=== PATIENT | female | born 1955 | race Two or more races ===

== ENCOUNTER 2016-07-30 10:44 | Emergency (ER) | payer MEDICARE, MEDICAID ==
[2016-07-30] MEDS ORDERED: DIPHENHYDRAMINE HCL IV 50 MG/ML VIAL IVP ONE (11:01)
[2016-07-30] MEDS ORDERED: METOCLOPRAMIDE HCL 10 MG/2 ML VIAL IVP ONE (11:01)
[2016-07-30] MEDS ORDERED: KETOROLAC 30 MG/ML VIAL IVP ONE (11:01)
--- NOTE | 2016-07-30 11:07 | Emergency Department Record ---
History of Present Illness - General Chief Complaint: Headache Migraine Stated Complaint: FAIRCHILD & BODYACHES Time Seen by Provider: 07/30/16 10:45 Source: Patient Mode of Arrival: Ambulatory Limitations: No limitations - History of Present Illness Initial Comments: 60 yo female presents to ED from [facility] office for evaluation of headache and body aches that began last night. Patient does report similar headache symptoms previously, denies nausea/vomiting symptoms. Patient reports that her symptoms came on gradually, reports congestion, sinus pain, and sinus pressure as well. Patient denies neck stiffness and denies anticoagulation use. MD Complaint: Headache Onset/Timin -: Hour(s) Onset Description: Gradual Location: Frontal, Occipital Severity: Moderate Severity scale (1-10): 10 Quality: Aching Consistency: Constant Improves With: Nothing Worsens With: None Other Symptoms: Chest pain, Cough Treatments Prior to Arrival: None - Related Data Home Medications Medication Instructions Recorded Confirmed Last Taken Levothyroxine Sodium [Synthroid] 150 mcg PO DAILY 09/20/14 07/30/16 07/28/16 Allergies Allergy/AdvReac Type Severity Reaction Status Date / Time aspirin Allergy Unknown PT UNSURE Unverified 07/30/16 10:19 OF REACTION Penicillins Allergy Unknown PT UNSURE Unverified 07/30/16 10:19 OF REACTION Travel Screening - Travel/Exposure Within Last 30 Days Have you traveled within the last 30 days?: No - Travel/Exposure Within Last Year Have you traveled outside the [place] in the last year?: No - Additonal Travel Details Have you been exposed to anyone with a communicable illness?: No - Travel Symptoms Symptom Screening: None Review of Systems Constitutional: Denies: Chills, Malaise, Night sweats Eyes: Denies: Eye discharge, Eye pain ENT: Reports: Congestion. Denies: Ear pain, Epistaxis Respiratory: Reports: Cough. Denies: Dyspnea Cardiovascular: Denies: Chest pain, Dyspnea on exertion Endocrine: Denies: Fatigue, Heat or cold intolerance Gastrointestinal: Denies: Abdominal pain, Nausea, Vomiting Genitourinary: Denies: Dysuria, Frequency Musculoskeletal: Denies: Arthralgia, Back pain, Gout, Joint swelling Skin: Denies: Bruising, Change in color Neurological: Reports: Headache. Denies: Abnormal gait, Confusion, Seizure Psychiatric: Denies: Anxiety Hematological/Lymphatic: Denies: Anemia, Blood Clots Past Medical History - SOCIAL HISTORY Smoking Status: Former smoker Alcohol Use: None Drug Use: Occassional Drug Use Detail:: Marijuana - RESPIRATORY Hx Respiratory Disorders: No - CARDIOVASCULAR Hx Cardio Disorders: Yes Hx Abnormal EKG: Yes - NEURO Hx Neuro Disorders: No - GI Hx GI Disorders: No - Hx Genitourinary Disorders: No - ENDOCRINE Hx Endocrine Disorders: Yes Hx Thyroid Disease: Yes (removed) - MUSCULOSKELETAL Hx Musculoskeletal Disorders: No - PSYCH Hx Psych Problems: Yes Hx Anxiety: Yes Hx Depression: Yes - HEMATOLOGY/ONCOLOGY Hx Hematology/Oncology Disorders: No Family Medical History Any Significant Family History?: No Hx Cancer: Father Hx Diabetes: Mother Hx Liver Disease: Mother Physical Exam - General General Appearance: Alert, Oriented x3, Cooperative, Moderate distress (patient is tearful on examination, anxious appearing) Limitations: No limitations - Head Head exam: Atraumatic, Normocephalic, Normal inspection Head exam detail: negative: Abrasion, Contusion, Eddy's sign, General tenderness, Hematoma, Laceration - Eye Eye exam: Normal appearance. negative: Conjunctival injection, Periorbital swelling, Periorbital tenderness, Scleral icterus - ENT Ear exam: negative: Auricular hematoma, Auricular trauma Nasal Exam: negative: Active bleeding, Discharge, Dried blood, Foreign body Mouth exam: negative: Drooling, Laceration, Muffled voice, Tongue elevation - Neck Neck exam: Normal inspection. negative: Meningismus, Tenderness - Respiratory Respiratory exam: Normal lung sounds bilaterally. negative: Rales, Respiratory distress, Rhonchi, Stridor - Cardiovascular Cardiovascular Exam: Regular rate, Normal rhythm, Normal heart sounds - GI/Abdominal GI/Abdominal exam: Soft. negative: Rebound, Rigid, Tenderness - Rectal Rectal exam: Deferred - exam: Deferred - Extremities Extremities exam: Normal inspection. negative: Calf tenderness, Pedal edema, Tenderness - Back Back exam: Denies: CVA tenderness (R), CVA tenderness (L) - Neurological Neurological exam: Alert, Normal gait, Oriented X3 - Psychiatric Psychiatric exam: Normal affect, Normal mood - Skin Skin exam: Normal color. negative: Abrasion Type of lesion: negative: abrasion Course Vital Signs 07/30/16 10:46 Temperature 98.0 F Pulse Rate 92 H Respiratory 18 Rate Blood Pressure 154/85 Pulse Ox 97 - Reevaluation(s) Reevaluation #1: 07/30/16 11:06 Will administer migraine therapy, obtain laboratory studies, and CT imaging of the brain and reassess. Patient agrees with plan as discussed. Reevaluation #2: 07/30/16 11:51 Labs reviewed, CRP < 0.5, WBC normal, AST/ALT/Alk phos are minimally elevated and c/w hepatitis C history. CT Brain: NO acute process. Reevaluation #3: 07/30/16 12:11 Patient reassessed and reports that her headache symptoms are down to "5/10 from a 100/10". Given the patient's rapid improvement with non-narcotic therapy , lack of fever, and no meningeal signs, patient is in agreement that LP would not be of benefit. Patient was instructed to return to ED for any worsening of her symptoms. Medical Decision Making - Lab Data Result diagrams: 07/30/16 11:09 07/30/16 11:09 Disposition Disposition: Discharge Clinical Impression: Headache Qualifiers: Headache type: unspecified Headache chronicity pattern: acute headache Intractability: not intractable Qualified Code(s): R51 - Headache Disposition: Home, Self-Care Condition: (2) Stable Instructions: Acute Headache (ED) Additional Instructions: Return to ED if your symptoms worsen or if you have any concerns. Follow-up with your family doctor in 1-3 days as directed. Forms: Patient Portal Access Time of Disposition: 12:14
[2016-07-30] MEDS ORDERED: 0.9 % SODIUM CHLORIDE 1000ML 1,000 ML IV SCH (11:15)
[2016-07-30 11:20] LABS: BASO % 0.1 % (0-6); EOS % 0.5 % (0-6); GRAN % 73.3 % (47-80); HEMATOCRIT 43.5 % (35.0-47.0); HEMOGLOBIN 15.2 gm/dl (11.6-16.0); LYMPH % 19.2 % (16-45); MEAN CELL VOLUME 85.5 fl (81-97); MEAN CORPUSCULAR HEMOGLOBIN 29.9 pg (27-33); MEAN CORPUSCULAR HGB CONC 34.9 g/dl (32-36); MEAN PLATELET VOLUME 10.7 fl (7.4-10.4); MONO % 6.9 % (0-9); PLATELET COUNT 154 K/uL (130-400); RED BLOOD COUNT 5.09 M/uL (3.80-5.40); RED CELL DISTRIBUTION WIDTH 13.6 % (11.5-14.5)
[2016-07-30 11:33] LABS: ALB/GLOB RATIO 1.2 (1.1-1.8); ALBUMIN 4.6 gm/dL (3.5-5.0); ALKALINE PHOSPHATASE 164 U/L (38-126); ALT/SGPT 58 U/L (9-52); ANION GAP 5.7 (7-16); AST/SGOT 58 U/L (14-36); BILIRUBIN,TOTAL 0.81 mg/dL (0.2-1.3); BLOOD UREA NITROGEN 10 mg/dL (7-17); C-REACTIVE PROTEIN < 0.5 mg/dL (0.0-0.9); CARBON DIOXIDE 24.3 mmol/L (22-30); CREATININE 0.7 mg/dL (0.52-1.04); EST GLOMERULAR FILTRATION RATE > 60 ml/min; GLUCOSE,RANDOM 114 mg/dL (70-110); TOTAL PROTEIN 8.6 gm/dL (6.3-8.2)
--- NOTE | 2016-08-01 09:16 | CT SCAN REPORT ---
EXAM: CT OF THE BRAIN HISTORY: HEADACHES. TECHNIQUE: CT of the brain without contrast was obtained. Comparison: Prior CT of the brain from 09/20/14. FINDINGS: The globes are intact. Mucosal thickening of the ethmoid air cells. No displaced or depressed skull fracture. No intra or extraaxial hemorrhage. CT is limited for evaluation of acute infarct. No CT evidence for large or territorial acute infarct. No mass or midline shift. IMPRESSION: NEGATIVE FOR ACUTE INTRACRANIAL ABNORMALITY. JOB NUMBER: [id number] [facility]
== END 2016-07-30 13:06 | disposition home or self-care (01) ==
LOC: ER 10:44
DX: R51 Headache (principal); E05.00 Thyrotoxicosis with diffuse goiter without thyrotoxic crisis or storm; R05 Cough; R68.83 Chills (without fever); Z00.00 Encounter for general adult medical examination without abnormal findings; Z13.1 Encounter for screening for diabetes mellitus; Z13.220 Encounter for screening for lipoid disorders; Z86.19 Personal history of other infectious and parasitic diseases; Z11.59 Encounter for screening for other viral diseases
CPT/HCPCS: 70450; 80053; 85025; 86140; 96374; 96375; 99283; 99284; J1200; J1885; J2765

== ENCOUNTER 2017-11-13 07:02 | Emergency (ER) | payer MEDICARE, MEDICAID ==
[2017-11-13] MEDS ORDERED: ONDANSETRON HCL IV 4 MG/2 ML VIAL IV ONE (07:20)
[2017-11-13] MEDS ORDERED: 0.9 % SODIUM CHLORIDE 1,000 ML BAG IV ONE (07:20)
--- NOTE | 2017-11-13 07:28 | Emergency Department Record ---
History of Present Illness - General Chief Complaint: Headache Migraine Stated Complaint: HEADACHE Time Seen by Provider: 11/13/17 07:09 Source: Patient Mode of Arrival: Ambulatory Limitations: No limitations - History of Present Illness Initial Comments: The patient is here due to a 3-4 day hx of not feeling well. She started Harvoni 5 days ago and then 4 days ago developed a mild frontal FAIRCHILD. Since the FAIRCHILD has gradually worsened and now has become much more severe. She has had nausea and some vomiting and also did feel SOB last night with a cough. The patient also feels like her gums are swollen. There has been no fever, chills, CP, AP, or visual changes. The patient has had similar FAIRCHILD's in the past and has been to the ER for them also. MD Complaint: Headache Onset/Timin -: Days(s) Onset Description: Gradual Location: Facial, Frontal Severity scale (1-10): 10 Quality: Aching Consistency: Constant Improves With: Nothing Associated Symptoms: Other Treatments Prior to Arrival: Ibuprofen - Related Data Home Medications Medication Instructions Recorded Confirmed Last Taken Ledipasvir/Sofosbuvir [Harvoni 1 each PO DAILY 11/13/17 11/13/17 11/12/17 90-400 mg Tablet] Previous Rx's Medication Instructions Recorded Ondansetron [Zofran Odt] 4 mg SL .Q4-6H PRN #12 tab.rapdis 11/13/17 Allergies Allergy/AdvReac Type Severity Reaction Status Date / Time aspirin Allergy Unknown PT UNSURE Unverified 03/27/17 10:10 OF REACTION Penicillins Allergy Unknown PT UNSURE Unverified 03/27/17 10:10 OF REACTION Travel Screening - Travel/Exposure Within Last 30 Days Have you traveled within the last 30 days?: No - Travel/Exposure Within Last Year Have you traveled outside the [place] in the last year?: No - Additonal Travel Details Have you been exposed to anyone with a communicable illness?: No - Travel Symptoms Symptom Screening: None Review of Systems Constitutional: Reports: Malaise. Denies: Chills, Fever Eyes: Denies: Eye discharge ENT: Denies: Congestion Respiratory: Denies: Cough, Dyspnea Cardiovascular: Denies: Arrhythmia, Chest pain Endocrine: Reports: Fatigue Gastrointestinal: Reports: Nausea Genitourinary: Denies: Dysuria Musculoskeletal: Denies: Arthralgia Past Medical History - SOCIAL HISTORY Smoking Status: Former smoker Alcohol Use: None Drug Use: Rare Drug Use Detail:: Marijuana - RESPIRATORY Hx Respiratory Disorders: Yes Hx COPD: Yes - CARDIOVASCULAR Hx Cardio Disorders: No Hx Abnormal EKG: Yes - NEURO Hx Neuro Disorders: Yes Hx Headaches: Yes - GI Hx GI Disorders: Yes Hx Hepatitis/Jaundice: Yes (Hep C) - Hx Genitourinary Disorders: No - ENDOCRINE Hx Endocrine Disorders: Yes Hx Thyroid Disease: Yes (removed) - MUSCULOSKELETAL Hx Musculoskeletal Disorders: Yes Hx Osteoporosis: Yes - PSYCH Hx Psych Problems: Yes Hx Anxiety: Yes Hx Depression: Yes - HEMATOLOGY/ONCOLOGY Hx Hematology/Oncology Disorders: No Family Medical History Any Significant Family History?: No Hx Cancer: Father Hx Diabetes: Mother Hx Liver Disease: Mother Physical Exam - General General Appearance: Alert, Oriented x3, Cooperative, No acute distress - Head Head exam: Atraumatic, Normocephalic, Normal inspection - Eye Eye exam: Normal appearance, PERRL, EOMI - ENT Throat exam: Normal inspection. negative: Tonsillar erythema, Tonsillar exudate - Neck Neck exam: Normal inspection, Full ROM. negative: Meningismus (The neck is very supple.), Tenderness - Respiratory Respiratory exam: Normal lung sounds bilaterally. negative: Respiratory distress - Cardiovascular Cardiovascular Exam: Regular rate, Normal rhythm, Normal heart sounds - GI/Abdominal GI/Abdominal exam: Soft, Normal bowel sounds. negative: Tenderness - Extremities Extremities exam: Normal inspection, Full ROM, Normal capillary refill. negative: Tenderness - Neurological Neurological exam: Alert, Normal gait, Oriented X3. negative: Abnormal gait, Motor sensory deficit Course Vital Signs 11/13/17 07:08 Temperature 98.4 F Pulse Rate [ 92 H Pulse Ox Probe] Respiratory 24 Rate Blood Pressure 144/95 [Left Arm] Pulse Ox 97 - Reevaluation(s) Reevaluation #1: The patient is doing a lot better at this time and her FAIRCHILD has resolved. I did discuss what I feel is the cause of her symptoms and feel very strongly that it is the Harvoni. The first 4 common side effects of Harvoni are weakness, headache, nausea and cough and the patient is here due to all 4 of those issues. She is to stop the medicine and call her specialist today. 11/13/17 08:24 Medical Decision Making - Data Complexity MDM Data: Labs Ordered and/or Reviewed, X-Ray Ordered and/or Reviewed - Lab Data Result diagrams: 11/13/17 07:35 11/13/17 07:35 - Radiology Data Radiology results: Report reviewed (CXR: Neg) Disposition Disposition: Discharge Clinical Impression: Medication side effects Disposition: Home, Self-Care Condition: (2) Stable Instructions: Acute Headache (ED) Additional Instructions: Please stop the Harvoni and use Zofran for nausea. Please call your Specialist today for further instructions regarding the medicines. Return to the ER for any worsening symptoms. Prescriptions: Ondansetron [Zofran Odt] 4 mg SL .Q4-6H PRN #12 tab.rapdis PRN Reason: Nausea Forms: Patient Portal Access Time of Disposition: 08:27 Quality - Quality Measures Quality Measures: N/A - Blood Pressure Screening View Details: Yes Does Patient Have Any of the Following: No Blood Pressure Classification: Pre-Hypertensive BP Reading Systolic Measurement: 117 Diastolic Measurement: 80 Screening for High Blood Pressure: < Pre-Hypertensive BP, F/U Documented > [ G8950] Pre-Hypertensive Follow-up Interventions: Referral to alternative/primary care provider.
[2017-11-13] MEDS ORDERED: KETOROLAC 30 MG/ML VIAL IVP ONE (07:30)
[2017-11-13] MEDS ORDERED: DIPHENHYDRAMINE HCL 50 MG/ML VIAL IVP ONE (07:30)
[2017-11-13] MEDS ORDERED: METOCLOPRAMIDE HCL 10 MG/2 ML VIAL IVP ONE (07:30)
[2017-11-13 07:41] LABS: BASO % 0.2 % (0-6); EOS % 1.2 % (0-6); GRAN % 59.2 % (47-80); HEMATOCRIT 40.1 % (35.0-47.0); HEMOGLOBIN 13.7 gm/dl (11.6-16.0); LYMPH % 32.2 % (16-45); MEAN CELL VOLUME 86.2 fl (81-97); MEAN CORPUSCULAR HEMOGLOBIN 29.5 pg (27-33); MEAN CORPUSCULAR HGB CONC 34.2 g/dl (32-36); MEAN PLATELET VOLUME 10.4 fl (7.4-10.4); MONO % 7.2 % (0-9); PLATELET COUNT 169 K/uL (130-400); RED BLOOD COUNT 4.65 M/uL (3.80-5.40); RED CELL DISTRIBUTION WIDTH 12.8 % (11.5-14.5); WHITE BLOOD COUNT W/O DIFF 6.5 K/uL (4.2-12.2)
[2017-11-13 07:53] LABS: BLOOD UREA NITROGEN 9 mg/dL (8-23); CREATININE 0.6 mg/dL (0.5-0.9); EST GLOMERULAR FILTRATION RATE > 60 mL/min; TOTAL PROTEIN 7.4 g/dL (6.6-8.7)
[2017-11-13 07:55] LABS: GLUCOSE,RANDOM 114 mg/dL (74-109)
[2017-11-13 07:58] LABS: ALKALINE PHOSPHATASE 107 U/L (35-104); ALT/SGPT < 5 U/L (<33); AST/SGOT 21 U/L (10.0-35.0)
[2017-11-13 07:59] LABS: BILIRUBIN,DIRECT < 0.2 mg/dL (0-0.3)
--- NOTE | 2017-11-15 14:58 | RADIOLOGY REPORT ---
EXAM: CHEST, TWO VIEWS HISTORY: COUGH. TECHNIQUE: Two views of the chest were obtained. Comparison: Two view chest radiographic examination dated 12/11/15. FINDINGS: The heart is not enlarged and the pulmonary vasculature is nondilated. The lungs and pleural spaces are grossly clear with the exception of minimal biapical pleural and parenchymal scarring. There are mild degenerative end plate changes scattered within the visualized spine. IMPRESSION: NO RADIOGRAPHIC EVIDENCE OF ACUTE CARDIOPULMONARY DISEASE WITHOUT SIGNIFICANT CHANGE SINCE 04/12/05. JOB NUMBER: [id number] [facility]
== END 2017-11-13 08:38 | disposition home or self-care (01) ==
LOC: ER 07:02
DX: G44.40 Drug-induced headache, not elsewhere classified, not intractable (principal); R11.2 Nausea with vomiting, unspecified; R06.02 Shortness of breath; R53.1 Weakness; R05 Cough; T50.995A Adverse effect of other drugs, medicaments and biological substances, initial encounter; Z87.891 Personal history of nicotine dependence
CPT/HCPCS: 99284 ×2; 96374; 96375; 96361; 85025; 80076; 80048; 71046; J1885; J2405; J1200; J2765; J7030

== ENCOUNTER 2018-02-24 17:41 | Inpatient (IN) | payer MEDICARE, MEDICAID ==
--- NOTE | 2018-02-24 18:19 | Emergency Department Record ---
History of Present Illness - General Chief Complaint: Dizziness Stated Complaint: FELL,DIZZY, SHAKY Time Seen by Provider: 02/24/18 18:06 Source: Patient Mode of Arrival: Ambulatory - History of Present Illness Initial Comments: The patient states that she had two episodes of syncope since last evening twice. FIRST syncope she was lightheaded, layed down for a while, got up to go to bathroom and next thing she knew she woke up on bathroom floor. She states she it her left head left shoulder and left hip/thigh and they are painful. SECOND time she had slept all night in bed, went home around 1100am today, ate toast and egg, and when she got up to to to bathroom she woke up again on the floor. She denies other mproblems such as chest pain, Yessy, abdominal pain nausea vomiting diarrhea, abdominal pain. MD Complaint: Other (syncope) Onset/Timin -: Days(s) Timing: Sudden onset, Waxing/waning Description: Near-syncope History of Same: Yes (related to thyroid issues 2009) History of Trauma: No Severity: Moderate - Marianne Coma Scale Eye Response: (4) Open spontaneously Motor Response: (6) Obeys commands Verbal Response: (5) Oriented [place] Total: 15 - Related Data Allergies Allergy/AdvReac Type Severity Reaction Status Date / Time aspirin Allergy Unknown PT UNSURE Verified 02/24/18 17:56 OF REACTION Penicillins Allergy Unknown PT UNSURE Verified 02/24/18 17:56 OF REACTION Travel Screening - Travel/Exposure Within Last 30 Days Have you traveled within the last 30 days?: No - Travel/Exposure Within Last Year Have you traveled outside the [place] in the last year?: No - Additonal Travel Details Have you been exposed to anyone with a communicable illness?: No - Travel Symptoms Symptom Screening: None Review of Systems Reviewed: No additional complaints except as noted below Constitutional: Reports: As per HPI. Denies: Chills, Fever, Malaise, Night sweats, Weakness, Weight change Eyes: Reports: As per HPI. Denies: Eye discharge, Eye pain, Photophobia, Vision change ENT: Reports: As per HPI. Denies: Congestion, Dental pain, Ear pain, Epistaxis , Hearing loss, Throat pain Respiratory: Reports: As per HPI. Denies: Cough, Dyspnea, Hemoptysis, Stridor, Wheezes Cardiovascular: Reports: As per HPI. Denies: Arrhythmia, Chest pain, Dyspnea on exertion, Edema, Murmurs, Orthopnea, Palpitations, Paroxysmal nocturnal dyspnea, Rheumatic Fever, Syncope Endocrine: Reports: As per HPI. Denies: Fatigue, Heat or cold intolerance, Polydipsia, Polyuria Gastrointestinal: Reports: As per HPI. Denies: Abdominal pain, Constipation, Diarrhea, Hematemesis, Hematochezia, Melena, Nausea, Vomiting Genitourinary: Reports: As per HPI. Denies: Abnormal menses, Discharge, Dyspareunia, Dysuria, Frequency, Hematuria, Incontinence, Retention, Urgency Musculoskeletal: Reports: As per HPI. Denies: Arthralgia, Back pain, Gout, Joint swelling, Myalgia, Neck pain Skin: Reports: As per HPI. Denies: Bruising, Change in color, Change in hair/ nails, Lesions, Pruritus, Rash Neurological: Reports: As per HPI. Denies: Abnormal gait, Confusion, Headache, Numbness, Paresthesias, Seizure, Tingling, Tremors, Vertigo, Weakness Psychiatric: Reports: As per HPI. Denies: Anxiety, Auditory hallucinations, Depression, Homicidal thoughts, Suicidal thoughts, Visual hallucinations Hematological/Lymphatic: Reports: As per HPI. Denies: Anemia, Blood Clots, Easy bleeding, Easy bruising, Swollen glands Past Medical History - SOCIAL HISTORY Smoking Status: Former smoker Alcohol Use: None Drug Use: None, Rare Drug Use Detail:: Marijuana - RESPIRATORY Hx Respiratory Disorders: Yes Hx COPD: Yes - CARDIOVASCULAR Hx Cardio Disorders: No Hx Abnormal EKG: Yes Comment:: low HR - NEURO Hx Neuro Disorders: Yes Hx Headaches: Yes - GI Hx GI Disorders: Yes Hx Hepatitis/Jaundice: Yes (Hep C) - Hx Genitourinary Disorders: No - ENDOCRINE Hx Endocrine Disorders: Yes Hx Thyroid Disease: Yes (removed) - MUSCULOSKELETAL Hx Musculoskeletal Disorders: Yes Hx Osteoporosis: Yes - PSYCH Hx Psych Problems: Yes Hx Anxiety: Yes Hx Depression: Yes - HEMATOLOGY/ONCOLOGY Hx Hematology/Oncology Disorders: No Family Medical History Any Significant Family History?: Yes Hx Cancer: Father Hx Diabetes: Mother Hx Liver Disease: Mother Physical Exam - General General Appearance: Alert, Oriented x3, Cooperative, Mild distress - Head Head exam: Normal inspection Head exam detail: Contusion (diffusely over left side of head) - Eye Eye exam: Normal appearance, PERRL, EOMI. negative: Conjunctival injection, Nystagmus Pupils: Normal accommodation - ENT ENT exam: Normal exam, Mucous membranes moist, Normal external ear exam, Normal orophraynx, TM's normal bilaterally Ear exam: Normal external inspection. negative: External canal tenderness Nasal Exam: Normal inspection. negative: Discharge, Sinus tenderness Mouth exam: Normal external inspection, Tongue normal Teeth exam: Normal inspection. negative: Dental caries Throat exam: Normal inspection. negative: Tonsillar erythema, Tonsillar exudate - Neck Neck exam: Normal inspection, Full ROM. negative: Lymphadenopathy, Meningismus , Tenderness - Respiratory Respiratory exam: Normal lung sounds bilaterally. negative: Respiratory distress - Cardiovascular Cardiovascular Exam: Regular rate, Normal rhythm, Normal heart sounds - GI/Abdominal GI/Abdominal exam: Soft, Normal bowel sounds. negative: Tenderness - Rectal Rectal exam: Deferred - exam: Deferred - Extremities Extremities exam: Normal inspection, Full ROM, Normal capillary refill. negative: Calf tenderness, Pedal edema, Tenderness - Back Back exam: Reports: Normal inspection, Full ROM. Denies: CVA tenderness (R), CVA tenderness (L), Muscle spasm, Rash noted, Tenderness - Neurological Neurological exam: Alert, CN II-XII intact, Normal gait, Oriented X3, Reflexes normal. negative: Abnormal gait, Altered, Motor sensory deficit - Psychiatric Psychiatric exam: Normal affect, Normal mood - Skin Skin exam: Dry, Intact, Normal color, Warm Course Vital Signs 02/24/18 17:47 Temperature 97.9 F Pulse Rate 86 Respiratory 18 Rate Blood Pressure 121/78 Pulse Ox 98 - Reevaluation(s) Reevaluation #1: 02/24/18 21:25 Patis's test results discussed with her, and she agrees to admission here for syncope workup. Medical Decision Making - Management Options MDM Management: Additional Work-up Planned (e.g. ADM/Transfer/OP Study) ( Admission fo syncope) - Data Complexity MDM Data: Labs Ordered and/or Reviewed, X-Ray Ordered and/or Reviewed (All scans and xrays negative per radiologist.), EKG Ordered and/or Reviewed - Lab Data Result diagrams: 02/24/18 18:40 - EKG Data -: EKG Interpreted by [facility] EKG: No Acute Changes Disposition Forms: Patient Portal Access Quality - Quality Measures Quality Measures: N/A - Blood Pressure Screening Does Patient Have Any of the Following: No Blood Pressure Classification: Pre-Hypertensive BP Reading Systolic Measurement: 121 Diastolic Measurement: 78 Screening for High Blood Pressure: < Normal BP, F/U Not Required > [G8783]
[2018-02-24 18:43] LABS: HEMATOCRIT 39.6 % (35.0-47.0); HEMOGLOBIN 13.4 gm/dl (11.6-16.0); MEAN CELL VOLUME 84.8 fl (81-97); MEAN CORPUSCULAR HEMOGLOBIN 28.7 pg (27-33); MEAN CORPUSCULAR HGB CONC 33.8 g/dl (32-36); PLATELET COUNT 198 K/uL (130-400); RED BLOOD COUNT 4.67 M/uL (3.80-5.40); RED CELL DISTRIBUTION WIDTH 12.8 % (11.5-14.5); WHITE BLOOD COUNT W/O DIFF 6.6 K/uL (4.2-12.2)
[2018-02-24 18:52] LABS: PLATELET ESTIMATE NORMAL (NORMAL)
[2018-02-24 18:57] LABS: TOTAL PROTEIN 7.3 g/dL (6.6-8.7)
[2018-02-24 19:02] LABS: ALBUMIN 3.8 g/dL (4.0-5.0); ALKALINE PHOSPHATASE 103 U/L (35-104); ALT/SGPT 18 U/L (<33); AST/SGOT 23 U/L (10.0-35.0)
[2018-02-24 19:03] LABS: BILIRUBIN,DIRECT < 0.2 mg/dL (0-0.3)
[2018-02-24 20:57] LABS: URINE APPEARANCE CLEAR; URINE BILIRUBIN NEGATIVE (NEGATIVE); URINE BLOOD NEGATIVE (NEGATIVE); URINE COLOR YELLOW; URINE GLUCOSE (UA) NEGATIVE (NEGATIVE); URINE KETONE NEGATIVE (NEGATIVE); URINE LEUKOCYTE ESTERASE NEGATIVE (NEGATIVE); URINE NITRITE NEGATIVE (NEGATIVE); URINE PROTEIN NEGATIVE (NEGATIVE)
[2018-02-24 21:02] LABS: AMPHETAMINE SCREEN URINE NOT DETECTED; BARBITURATE SCREEN URINE NOT DETECTED; BENZODIAZEPINE SCREEN URINE NOT DETECTED; COCAINE SCREEN URINE NOT DETECTED; METHADONE SCREEN URINE NOT DETECTED; OPIATE SCREEN URINE NOT DETECTED; PHENCYCLIDINE SCREEN URINE NOT DETECTED; THC SCREEN URINE NOT DETECTED; TRICYCLIC ANTIDEPRESSANT SCRN NOT DETECTED
[2018-02-24 21:03] LABS: METHAMPHETAMINE SCREEN NOT DETECTED; OXYCODONE SCREEN URINE NOT DETECTED; PROPOXYPHENE SCREEN URINE NOT DETECTED
[2018-02-24] MEDS ORDERED: KETOROLAC 30 MG/ML VIAL IVP ONE (21:20)
[2018-02-24] MEDS ORDERED: AL HYDROX/MAG HYDROX 30ML UD PO PRN (21:45)
[2018-02-24] MEDS ORDERED: TEMAZEPAM 15 MG CAPSULE PO PRN (21:45)
[2018-02-24] MEDS: ACETAMINOPHEN 325 MG TAB PO PRN (22:27)
[2018-02-24] MEDS ORDERED: PNEUM 23-VAL ADULT IM ONE (23:21)
[2018-02-25 05:45] LABS: HEMATOCRIT 37.9 % (35.0-47.0); HEMOGLOBIN 12.9 gm/dl (11.6-16.0); MEAN CELL VOLUME 84.2 fl (81-97); MEAN CORPUSCULAR HEMOGLOBIN 28.7 pg (27-33); MEAN PLATELET VOLUME 10.3 fl (7.4-10.4); PLATELET COUNT 181 K/uL (130-400); RED CELL DISTRIBUTION WIDTH 12.5 % (11.5-14.5); WHITE BLOOD COUNT W/O DIFF 5.1 K/uL (4.2-12.2)
[2018-02-25 05:59] LABS: ALB/GLOB RATIO 1.1 (1.1-1.8); ALBUMIN 3.4 g/dL (4.0-5.0); ALKALINE PHOSPHATASE 91 U/L (35-104); ALT/SGPT 19 U/L (<33); AST/SGOT 20 U/L (10.0-35.0); BLOOD UREA NITROGEN 13 mg/dL (8-23); CREATININE 0.6 mg/dL (0.5-0.9); EST GLOMERULAR FILTRATION RATE > 60 mL/min; GLUCOSE,RANDOM 109 mg/dL (74-109); TOTAL PROTEIN 6.6 g/dL (6.6-8.7)
[2018-02-25 06:06] LABS: PLATELET ESTIMATE NORMAL (NORMAL)
[2018-02-25] MEDS ORDERED: LEVOTHYROXINE SODIUM 150 MCG TABLET PO SCH (07:00)
--- NOTE | 2018-02-25 07:35 | CT SCAN REPORT ---
EXAM: CT SCAN OF THE BRAIN WITHOUT CONTRAST HISTORY: SYNCOPE AND FALLS. LEFT SIDED HEAD AND NECK PAIN. TECHNIQUE: Standard CT imaging of the brain was performed in the axial plane without contrast. Comparison: 07/30/16. Encounter: Initial. FINDINGS: The ventricles and subarachnoid spaces are normal. There is no mass , mass effect, intracranial hemorrhage, visible acute infarct, or abnormal extraaxial fluid. The skull is intact. The orbits, sinuses, and mastoids are normal. IMPRESSION: NO ACUTE INTRACRANIAL ABNORMALITY OR SKULL FRACTURE. JOB NUMBER: [id number] [facility]TDD
--- NOTE | 2018-02-25 07:39 | CT SCAN REPORT ---
EXAM: CT SCAN OF THE CERVICAL SPINE WITHOUT CONTRAST HISTORY: SYNCOPE AND FALL. LEFT SIDED NECK PAIN. TECHNIQUE: Standard CT imaging of the cervical spine was performed in the axial plane without contrast. Additional coronal and sagittal reformatted images were also performed. Comparison: None. Encounter: Initial. FINDINGS: The patient is immobilized in a cervical collar. There is normal cervical alignment. The craniocervical and cervicothoracic junctions are normal. There is no acute fracture, subluxation, or prevertebral soft tissue swelling. There is very minor end plate degenerative change at the C5-C6 level. There is no central canal stenosis or significant neural foraminal narrowing. The neck soft tissues and lung apices appear normal. IMPRESSION: NO ACUTE CERVICAL SPINE PATHOLOGY. JOB NUMBER: [id number] [facility]TDD
--- NOTE | 2018-02-25 07:41 | RADIOLOGY REPORT ---
EXAM: LEFT SHOULDER HISTORY: LEFT SHOULDER PAIN STATUS POST FALL. TECHNIQUE: Three views of the left shoulder were obtained. Comparison: None. FINDINGS: The bones and joints are intact. There is no acute fracture or dislocation. There are minor arthritic changes of the acromioclavicular joint. IMPRESSION: NO ACUTE LEFT SHOULDER PATHOLOGY. JOB NUMBER: [id number] MTDD
--- NOTE | 2018-02-25 07:43 | RADIOLOGY REPORT ---
EXAM: LEFT FEMUR HISTORY: LEFT FEMUR PAIN STATUS POST FALL. TECHNIQUE: AP and lateral views of the left femur were obtained. Comparison: None. Encounter: Initial. FINDINGS: The bones and joints are normal in appearance. There is no acute fracture or dislocation. No focal soft tissue abnormality is identified. IMPRESSION: NEGATIVE LEFT FEMUR. JOB NUMBER: [id number] MTDD
--- NOTE | 2018-02-25 07:45 | RADIOLOGY REPORT ---
EXAM: LEFT RIBS WITH PA CHEST HISTORY: LEFT RIB PAIN STATUS POST FALL. TECHNIQUE: An AP upright view of the chest and four views of the left ribs were obtained. Comparison: Previous chest x-ray dated 11/13/17. FINDINGS: The heart, mediastinum, and pulmonary vasculature are normal. The lungs are clear. There is no pneumothorax or effusion. The left ribs are normal in appearance. There is no fracture or destructive process. IMPRESSION: NO ACUTE CHEST OR RIB PATHOLOGY IDENTIFIED. JOB [facility]BER: [id number] [facility]
[2018-02-25] MEDS: ALBUTEROL HFA 8 GM INHALER INH PRN ×2 (08:24→22:33)
[2018-02-25] MEDS: ACETAMINOPHEN 325 MG TAB PO PRN ×2 (08:32→12:18)
[2018-02-25] MEDS ORDERED: LEDIPASVIR PO SCH (10:00)
[2018-02-25] MEDS ORDERED: SOFOSBUVIR PO SCH (10:00)
--- NOTE | 2018-02-25 10:44 | History & Physical ---
History of Present Illness - Date of Service Date of Service for History & Physical: 02/25/18 - History of Present Illness Admitting Diagnosis: Syncope; multiple contusions lef shoulder, head, left leg History of Present Illness: 62 yo female c/o syncope x2. First episode was 02/16/18 when at home. Reports she was feeling dizzy and had her nephew assist her to the bathroom. Pt remembers splashing cold water on her face and then woke up on the bathroom floor. Was able to get her self off the floor and ambulate out of the bathroom, family assisted her to the bed. Pt reports vomiting when she got to bed, then laying down but did not sleep. Family later reported to her that she was not understanding parts of conversation. Pt was not taken to ER nor was EMS notified , pt states everyone was intoxicated at the green party but she was not drinking, was there for the food. Second episode was 02/24/18 with dizziness at home. Pt ate breakfast but still had dizziness. Pt is a poor historian and became very anxious during this interaction. PMH Hep C with recent tx completion, Hypothyroidism, Anx/Dep, COPD. 02/24/18 Pt presented to ER for dizziness and episode of syncope. A&Ox3 upon arrival, denied CP, SOB, VINOD or ABD pain. BP 121/78, HR 86, RR18, 98% RA, 97.9F WBC 6.6, Hgb 13.4, Hct 39.6, Plt 198 D Dimer 0.32 Tot Bili 0.40, Direct Bili <0.2, AST 23, ALT 18, Alk Phos 103, Trop <0.010, Tot protein 7.3, Albumin 3.8, lactic Acid EKG NSR, no acute issues CT head and neck neg Left shoulder, left femur XR neg, CXR neg Admission for Syncope 02/25/18 Pt in no distress, a&ox3, neuro exam normal. Pt is poor historian but able to explain timeline well enough. US carotids ordered, repeat trops negative. Pt became anxious when speaking about recent family events of losing her mother and father has progressive CA. During this conversation, pt began to shake. Glucose 170 (postprandial), BP 120/85, HR 88, 97% RA. After stopping conversation about family stressors, pt calmed down and remained a&ox4. Labs reviewed and TSH ordered. TSH 0.01, T3T4 ordered. A1c 5.5 -Synthroid orders cancelled Awaiting Cardiology Consult and US results POC if card clearance, PT eval and d/c tomorrow F/U PCP to adjust synthroid PCP Kaylynn Lua ([facility]) Travel Screening - Travel/Exposure Within Last 30 Days Have you traveled within the last 30 days?: No - Travel/Exposure Within Last Year Have you traveled outside the [place] in the last year?: No - Additonal Travel Details Have you been exposed to anyone with a communicable illness?: No - Travel Symptoms Symptom Screening: Lack of Appetite Review of Systems Constitutional: Reports: As per HPI. Denies: Chills, Fever, Malaise, Night sweats, Weakness, Weight change Eyes: Reports: As per HPI. Denies: Eye discharge, Eye pain, Photophobia, Vision change ENT: Reports: As per HPI. Denies: Congestion, Dental pain, Ear pain, Epistaxis , Hearing loss, Throat pain Respiratory: Reports: As per HPI. Denies: Cough, Dyspnea, Hemoptysis, Stridor, Wheezes Cardiovascular: Reports: As per HPI. Denies: Arrhythmia, Chest pain, Dyspnea on exertion, Edema, Murmurs, Orthopnea, Palpitations, Paroxysmal nocturnal dyspnea, Rheumatic Fever, Syncope Endocrine: Reports: As per HPI. Denies: Fatigue, Heat or cold intolerance, Polydipsia, Polyuria Gastrointestinal: Reports: As per HPI, Constipation. Denies: Abdominal pain, Diarrhea, Hematemesis, Hematochezia, Melena, Nausea, Vomiting Genitourinary: Reports: As per HPI. Denies: Abnormal menses, Discharge, Dyspareunia, Dysuria, Frequency, Hematuria, Incontinence, Retention, Urgency Musculoskeletal: Reports: As per HPI. Denies: Arthralgia, Back pain, Gout, Joint swelling, Myalgia, Neck pain Skin: Reports: As per HPI, Bruising (since fall). Denies: Change in color, Change in hair/nails, Lesions, Pruritus, Rash Neurological: Reports: As per HPI. Denies: Abnormal gait, Confusion, Headache, Numbness, Paresthesias, Seizure, Tingling, Tremors, Vertigo, Weakness Psychiatric: Reports: As per HPI. Denies: Anxiety, Auditory hallucinations, Depression, Homicidal thoughts, Suicidal thoughts, Visual hallucinations Hematological/Lymphatic: Reports: As per HPI. Denies: Anemia, Blood Clots, Easy bleeding, Easy bruising, Swollen glands Past Medical History - SOCIAL HISTORY Smoking Status: Former smoker - RESPIRATORY Hx Respiratory Disorders: Yes Hx COPD: Yes - CARDIOVASCULAR Hx Cardio Disorders: Yes Hx Abnormal EKG: Yes Comment:: low heart rate - NEURO Hx Neuro Disorders: Yes Hx Headaches: Yes - GI Hx GI Disorders: Yes Hx Hepatitis/Jaundice: Yes (Hx of hep C) - Hx Genitourinary Disorders: No - ENDOCRINE Hx Endocrine Disorders: Yes Hx Diabetes: No Hx Thyroid Disease: Yes (removed 2009) - MUSCULOSKELETAL Hx Musculoskeletal Disorders: Yes Hx Arthritis: Yes Hx Osteoporosis: Yes - PSYCH Hx Psych Problems: Yes Hx Anxiety: Yes Hx Depression: Yes - HEMATOLOGY/ONCOLOGY Hx Hematology/Oncology Disorders: No Family Medical History Any Significant Family History?: Yes Hx Cancer: Father Hx Diabetes: Mother Hx Liver Disease: Mother H&P Meds/Allergies - Allergies Allergies: Allergies Allergy/AdvReac Type Severity Reaction Status Date / Time aspirin Allergy Unknown PT UNSURE Verified 02/24/18 17:56 OF REACTION Penicillins Allergy Unknown PT UNSURE Verified 02/24/18 17:56 OF REACTION - Home Medications Home Medications Medication Instructions Recorded Confirmed Last Taken Levothyroxine Sodium [Synthroid] 25 mcg PO DAILY 02/25/18 02/25/18 Unknown Levothyroxine Sodium [Synthroid] 200 mcg PO DAILY 02/25/18 02/25/18 Unknown - Active Medications Active Medications: Current Medications Acetaminophen (Tylenol 325mg) 650 mg PO Q4H PRN PRN Reason: PAIN - MILD(1-4)/FEVER Last Admin: 02/25/18 08:32 Dose: 650 mg Al Hydroxide/Mg Hydroxide (Maalox) 30 ml PO Q4H PRN PRN Reason: INDIGESTION Albuterol Sulfate (Ventolin Hfa) 2 puff INH Q4H PRN PRN Reason: SHORTNESS OF BREATH Last Admin: 02/25/18 08:24 Dose: 2 puff Temazepam (Restoril) 15 mg PO QHS PRN PRN Reason: INSOMNIA Last Admin: 02/24/18 22:26 Dose: 15 mg Physical Exam - Vital Signs Vital Signs: Vital Signs - Last 24 Hrs Temp Pulse Pulse Resp BP BP Pulse Ox 02/25/18 09:06 97.9 F 94/55 02/25/18 08:20 72 16 02/25/18 05:45 97.9 F 66 14 94/55 97 02/24/18 21:45 97.5 F L 69 16 138/78 97 02/24/18 21:16 80 14 127/86 99 02/24/18 17:47 97.9 F 86 18 121/78 98 - General General Appearance: Alert, Oriented x3, Cooperative, No acute distress - Head Head exam: Normal inspection Head exam detail: Contusion (diffusely over left side of head) - Eye Eye exam: Normal appearance, PERRL, EOMI. negative: Conjunctival injection, Nystagmus Pupils: Normal accommodation - ENT ENT exam: Normal exam, Mucous membranes moist, Normal external ear exam, Normal orophraynx, TM's normal bilaterally Ear exam: Normal external inspection. negative: External canal tenderness Nasal Exam: Normal inspection. negative: Discharge, Sinus tenderness Mouth exam: Normal external inspection, Tongue normal Teeth exam: Normal inspection. negative: Dental caries Throat exam: Normal inspection. negative: Tonsillar erythema, Tonsillar exudate - Neck Neck exam: Normal inspection, Full ROM. negative: Lymphadenopathy, Meningismus , Tenderness - Respiratory Respiratory exam: Normal lung sounds bilaterally. negative: Respiratory distress - Cardiovascular Cardiovascular Exam: Regular rate, Normal rhythm, Normal heart sounds Peripheral Pulses: 2+: Radial (R), Radial (L), Dorsalis Pedis (R), Dorsalis Pedis (L) - GI/Abdominal GI/Abdominal exam: Soft, Normal bowel sounds. negative: Tenderness - Rectal Rectal exam: Deferred - exam: Deferred - Extremities Extremities exam: Normal inspection, Full ROM, Normal capillary refill. negative: Calf tenderness, Pedal edema, Tenderness - Back Back exam: Reports: Normal inspection, Full ROM. Denies: CVA tenderness (R), CVA tenderness (L), Muscle spasm, Rash noted, Tenderness - Neurological Neurological exam: Alert, CN II-XII intact, Normal gait, Oriented X3. negative : Abnormal gait, Altered, Motor sensory deficit - Psychiatric Psychiatric exam: Normal affect, Normal mood - Skin Skin exam: Dry, Intact, Normal color, Warm Results - Labs Result Diagrams: 02/25/18 05:35 02/25/18 05:35 Labs Last 24 Hours: Laboratory Results - last 24 hr 02/24/18 02/24/18 02/24/18 17:10 18:40 18:40 WBC 6.6 RBC 4.67 Hgb 13.4 Hct 39.6 MCV 84.8 MCH 28.7 MCHC 33.8 RDW 12.8 Plt Count 198 MPV 11.0 H Neutrophils % 37.0 L Eosinophils % Not Reportable Basophils % Not Reportable Lymphocytes 56.0 H Monocytes 6.0 Platelet Estimate Normal RBC Morphology Normal Eosinophil Count 1.0 D-Dimer 0.32 Sodium Potassium Chloride Carbon Dioxide Anion Gap BUN Creatinine Estimated GFR Random Glucose Hemoglobin A1c Lactic Acid 1.0 Calcium Total Bilirubin Direct Bilirubin AST ALT Alkaline Phosphatase Troponin T Total Protein Albumin Globulin Albumin/Globulin Ratio TSH Thyroxine (T4) Urine Color Urine Appearance Urine pH Ur Specific [place] Urine Protein Urine Glucose (UA) Urine Ketones Urine Blood Urine Nitrite Urine Bilirubin Urine Urobilinogen Ur Leukocyte Esterase Urine Opiates Screen Ur Oxycodone Screen Urine Methadone Screen Ur Propoxyphene Screen Ur Barbituates Screen Ur Tricyclics Screen Ur Phencyclidine Scrn Ur Amphetamine Screen U Methamphetamines Scrn U Benzodiazepines Scrn Urine Cocaine Screen Urine Cannabis Screen 02/24/18 02/24/18 02/24/18 18:40 20:50 20:50 WBC RBC Hgb Hct MCV MCH MCHC RDW Plt Count MPV Neutrophils % Eosinophils % Basophils % Lymphocytes Monocytes Platelet Estimate RBC Morphology Eosinophil Count D-Dimer Sodium Potassium Chloride Carbon Dioxide Anion Gap BUN Creatinine Estimated GFR Random Glucose Hemoglobin A1c Lactic Acid Cancelled Calcium Total Bilirubin 0.40 Direct Bilirubin < 0.2 AST 23 ALT 18 Alkaline Phosphatase 103 Troponin T Total Protein 7.3 Albumin 3.8 L Globulin Albumin/Globulin Ratio TSH Thyroxine (T4) Urine Color Yellow Urine Appearance Clear Urine pH 6.0 Ur Specific [place] 1.025 Urine Protein Negative Urine Glucose (UA) Negative Urine Ketones Negative Urine Blood Negative Urine Nitrite Negative Urine Bilirubin Negative Urine Urobilinogen 1.0 Ur Leukocyte Esterase Negative Urine Opiates Screen Not detected Ur Oxycodone Screen Not detected Urine Methadone Screen Not detected Ur Propoxyphene Screen Not detected Ur Barbituates Screen Not detected Ur Tricyclics Screen Not detected Ur Phencyclidine Scrn Not detected Ur Amphetamine Screen Not detected U Methamphetamines Scrn Not detected U Benzodiazepines Scrn Not detected Urine Cocaine Screen Not detected Urine Cannabis Screen Not detected 02/24/18 02/25/18 02/25/18 22:40 05:35 05:35 WBC 5.1 RBC 4.50 Hgb 12.9 Hct 37.9 MCV 84.2 MCH 28.7 MCHC 34.0 RDW 12.5 Plt Count 181 MPV 10.3 Neutrophils % 25.0 L Eosinophils % Not Reportable Basophils % Not Reportable Lymphocytes 64.0 H Monocytes 11.0 H Platelet Estimate Normal RBC Morphology Normal Eosinophil Count D-Dimer Sodium Potassium Chloride Carbon Dioxide Anion Gap BUN Creatinine Estimated GFR Random Glucose Hemoglobin A1c Lactic Acid Calcium Total Bilirubin Direct Bilirubin AST ALT Alkaline Phosphatase Troponin T < 0.010 < 0.010 Total Protein Albumin Globulin Albumin/Globulin Ratio TSH Thyroxine (T4) Urine Color Urine Appearance Urine pH Ur Specific [place] Urine Protein Urine Glucose (UA) Urine Ketones Urine Blood Urine Nitrite Urine Bilirubin Urine Urobilinogen Ur Leukocyte Esterase Urine Opiates Screen Ur Oxycodone Screen Urine Methadone Screen Ur Propoxyphene Screen Ur Barbituates Screen Ur Tricyclics Screen Ur Phencyclidine Scrn Ur Amphetamine Screen U Methamphetamines Scrn U Benzodiazepines Scrn Urine Cocaine Screen Urine Cannabis Screen 02/25/18 02/25/18 02/25/18 05:35 05:35 05:35 WBC RBC Hgb Hct MCV MCH MCHC RDW Plt Count MPV Neutrophils % Eosinophils % Basophils % Lymphocytes Monocytes Platelet Estimate RBC Morphology Eosinophil Count D-Dimer Sodium 143 Potassium 3.6 Chloride 108 H Carbon Dioxide 24.0 Anion Gap 11.0 BUN 13 Creatinine 0.6 Estimated GFR > 60 Random Glucose 109 Hemoglobin A1c Lactic Acid Calcium 9.2 Total Bilirubin 0.50 Direct Bilirubin AST 20 ALT 19 Alkaline Phosphatase 91 Troponin T Total Protein 6.6 Albumin 3.4 L Globulin 3.2 Albumin/Globulin Ratio 1.1 TSH 0.01 L Thyroxine (T4) 18.00 H Urine Color Urine Appearance Urine pH Ur Specific [place] Urine Protein Urine Glucose (UA) Urine Ketones Urine Blood Urine Nitrite Urine Bilirubin Urine Urobilinogen Ur Leukocyte Esterase Urine Opiates Screen Ur Oxycodone Screen Urine Methadone Screen Ur Propoxyphene Screen Ur Barbituates Screen Ur Tricyclics Screen Ur Phencyclidine Scrn Ur Amphetamine Screen U Methamphetamines Scrn U Benzodiazepines Scrn Urine Cocaine Screen Urine Cannabis Screen 02/25/18 05:35 WBC RBC Hgb Hct MCV MCH MCHC RDW Plt Count MPV Neutrophils % Eosinophils % Basophils % Lymphocytes Monocytes Platelet Estimate RBC Morphology Eosinophil Count D-Dimer Sodium Potassium Chloride Carbon Dioxide Anion Gap BUN Creatinine Estimated GFR Random Glucose Hemoglobin A1c 5.50 Lactic Acid Calcium Total Bilirubin Direct Bilirubin AST ALT Alkaline Phosphatase Troponin T Total Protein Albumin Globulin Albumin/Globulin Ratio TSH Thyroxine (T4) Urine Color Urine Appearance Urine pH Ur Specific [place] Urine Protein Urine Glucose (UA) Urine Ketones Urine Blood Urine Nitrite Urine Bilirubin Urine Urobilinogen Ur Leukocyte Esterase Urine Opiates Screen Ur Oxycodone Screen Urine Methadone Screen Ur Propoxyphene Screen Ur Barbituates Screen Ur Tricyclics Screen Ur Phencyclidine Scrn Ur Amphetamine Screen U Methamphetamines Scrn U Benzodiazepines Scrn Urine Cocaine Screen Urine Cannabis Screen - Imaging and Cardiology CT scan - head Status: Report reviewed Chest x-ray Status: Report reviewed VTE H&P Assessment - Risk for VTE Risk for VTE: Yes Risk Level: Moderate Risk Assessment Date: 02/25/18 Risk Assessment Time: 10:46 VTE Orders Placed or Will Be Placed: Yes Plan - Inpatient Certification Inpatient Certification: Admit to inpatient care: Based on my medical assessment, after consideration of patient's risk factors (age, co-morbidities and patient presenting symptoms and acuity), I expect that this patient will remain in the hospital greater than or equal to two midnights and that the services needed warrant inpatient care because: Patient Risk Factors: Fall risk, syncope Estimated length of stay: The patient may reasonably be expected to be discharged or transferred to a hospital within 96 hours after admission to [facility]. Services needed: Repeat labs, tele, PT eval, cardiology consult, carotid US Post hospital care (if known): [] I certify that my determination is in accordance with my understanding of Medicare requirements for reasonable and necessary inpatient services. 02/25/18 10:46 - Detailed Diagnosis and Plan (1) Syncope Current Visit: Yes Status: Acute Base Code: R55 - SYNCOPE AND COLLAPSE Comment: 02/25/18 -EKG neg, trop neg, tele normal -Ortho static VS pending -Carotid US pending - TSH abnomral, holding synthroid at this time -Cardilogy Consult pending -Fall risk, up with assist (2) Hypothyroid Current Visit: Yes Status: Acute Base Code: E03.9 - HYPOTHYROIDISM, UNSPECIFIED Comment: 02/25/18 -TSH 0.01, holding Synthroid, will give 150mcg at D/C until seen by PCP for chronic mgt -pt has similar issues 2009 with thryroid issues were first identified (3) DVT prophylaxis Current Visit: Yes Status: Acute Base Code: [id number] - Comment: 02/25/18 -Lovenox 40mg SQ QD (4) Full code status Current Visit: Yes Status: Acute Base Code: Z78.9 - OTHER SPECIFIED HEALTH STATUS Comment: 02/25/18 -Full Code Status
[2018-02-25] MEDS ORDERED: LEVOTHYROXINE SODIUM 75 MCG TABLET PO ONE (11:00)
[2018-02-25] MEDS: ENOXAPARIN 40 MG/0.4 ML SYR SQ SCH (12:18)
[2018-02-25] MEDS: DIPHENHYDRAMINE HCL 25 MG CAPSULE PO PRN (12:18)
--- NOTE | 2018-02-25 20:18 | Cardiology Consult ---
DATE: 02/25/2018 ADMISSION DATE: 02/24/2018 REASON FOR CONSULTATION: SYNCOPE. HISTORY: Ms. Hairston is 62 years old, who presented to [facility] on 02/24/2018 for two episodes of syncope. She states the first episode occurred on 02/16/2018, when she felt dizzy and woke up on the bathroom floor. She reported no other significant complaints. After regaining consciousness, she did have one episode of emesis. The second episode occurred on 02/24/2018 with, again, an episode of dizziness after breakfast. She denied angina, palpitations, TIA, or previous history of syncope. Her ECG on arrival demonstrated sinus rhythm with no ST/T abnormalities. Her troponins were negative during her hospitalization. Carotid ultrasound were ordered and demonstrated no significant bilateral carotid disease. PAST MEDICAL HISTORY: Includes hepatitis C, anxiety/depression, hypothyroidism, COPD. PAST SURGICAL HISTORY: She has no significant surgical history. MEDICATIONS AT HOME INCLUDE: Levothyroxine 225 mcg daily. ALLERGIES: ASPIRIN. PENICILLIN. She states she may have hives from these medications. SOCIAL HISTORY: She lives at home. She denies alcohol or tobacco use. PHYSICAL EXAM: GENERAL: She is afebrile. VITAL SIGNS: Blood pressure 118/57. Pulse 75. Respirations 16. LUNGS: Clear. CARDIAC: Cardiac exam was normal. ABDOMEN: Soft. EXTREMITIES: Extremities reveal no edema. LABORATORY PROFILE: Her white count is 5.1. Hemoglobin 12.9. Platelets 181,000. Sodium 143. Potassium 3.6. BUN 13. Creatinine 0.6. Blood sugar 109. Her troponins have been negative. IMPRESSION/PLAN: Ms. Hairston had two episodes of syncope that are likely vasovagal in nature. ECG and enzymes were negative.Carotid ultrasound was negative. Echocardiogram was performed today with an ejection fraction of 55% to 60% with mild mitral and tricuspid regurgitation. She can be discharged for outpatient follow-up. Thank you for this consultation. JOB NUMBER: [id number] MTDVlad
[2018-02-25] MEDS ORDERED: DOCUSATE SODIUM 100 MG CAPSULE PO PRN (20:39)
[2018-02-26 06:31] LABS: BASO % 0.2 % (0-6); EOS % 1.3 % (0-6); GRAN % 43.1 % (47-80); HEMATOCRIT 36.3 % (35.0-47.0); HEMOGLOBIN 12.4 gm/dl (11.6-16.0); LYMPH % 45.6 % (16-45); MEAN CORPUSCULAR HGB CONC 34.2 g/dl (32-36); MEAN PLATELET VOLUME 10.5 fl (7.4-10.4); MONO % 9.8 % (0-9); PLATELET COUNT 164 K/uL (130-400); RED BLOOD COUNT 4.27 M/uL (3.80-5.40); RED CELL DISTRIBUTION WIDTH 12.3 % (11.5-14.5); WHITE BLOOD COUNT W/O DIFF 4.7 K/uL (4.2-12.2)
[2018-02-26 06:47] LABS: BLOOD UREA NITROGEN 16 mg/dL (8-23); CREATININE 0.7 mg/dL (0.5-0.9); EST GLOMERULAR FILTRATION RATE > 60 mL/min; GLUCOSE,RANDOM 115 mg/dL (74-109)
[2018-02-26] MEDS: ACETAMINOPHEN 325 MG TAB PO PRN (06:56)
[2018-02-26] MEDS ORDERED: LEVOTHYROXINE SODIUM 75 MCG TABLET PO SCH (07:00)
--- NOTE | 2018-02-26 07:26 | US CAROTID DOPPLER REPORT ---
EXAM: BILATERAL CAROTID DOPPLER ULTRASOUND HISTORY: SYNCOPE, DIZZINESS. TECHNIQUE: Routine bilateral carotid arterial Doppler ultrasound was performed. Comparison: None. FINDINGS: 3 Vessel Right Peak Systolic/ End Diastolic Velocities Left Peak Systolic/ End Diastolic Velocities Proximal Common Carotid Artery 87 cm/s /22 cm/s 86 cm/s /31 cm/s Mid Common Carotid Artery 76 cm/s /26 cm/s 83 cm/s /24 cm/s Distal Common Carotid Artery 68 cm/s /22 cm/s 68 cm/s /21 cm/s Proximal Internal Carotid Artery 61 cm/s /19 cm/s 66 cm/s /26 cm/s Mid Internal Carotid Artery 67 cm/s /22 cm/s 60 cm/s /19 cm/s Distal Internal Carotid Artery 76 cm/s /36 cm/s 112 cm/s /37 cm/s Carotid Bulb 53 cm/s /17 cm/s 60 cm/s /18 cm/s Proximal External Carotid Artery 87 cm/s /11 cm/s 86 cm/s /11 cm/s d d d Right Flow Left Flow Vertebral Artery 33 cm/s/Antegrade 54 cm/s/Antegrade Right ICA/CCA ratio is 1.0. Left ICA/CCA ratio is 1.3. Small calcified plaques noted near the carotid bulbs bilaterally. Incidental note of a rounded hypoechoic nodule measuring 8 x 8 x 10 mm adjacent to the right external carotid artery. IMPRESSION: 1. BILATERAL CAROTID ATHEROSCLEROSIS WITH FINDINGS SUGGESTIVE OF LESS THAN 50% STENOSIS BILATERALLY. 2. ANTEGRADE FLOW IN BOTH VERTEBRAL ARTERIES. 3. INCIDENTALLY NOTED ROUNDED HYPOECHOIC NODULE MEASURING UP TO 10 MM ADJACENT TO THE RIGHT EXTERNAL CAROTID ARTERY. FINDINGS INDETERMINATE, BUT MAY REPRESENT A LYMPH NODE. JOB NUMBER: [id number] [facility]
--- NOTE | 2018-02-26 08:58 | Discharge Summary ---
Providers Discharge Summary Date: 02/26/18 Date of admission: 02/24/18 21:36 Expected Date of Discharge: 02/26/18 Attending physician: NOHELIA CORDERO Primary care physician: ERIS WEBB D.O. 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?: Mary Comment: unknown Physical Exam - Vital Signs Vital Signs: Vital Signs - Last 24 Hrs Temp Pulse Pulse Resp BP BP Pulse Ox 02/26/18 08:14 85 18 02/26/18 05:00 97.9 F 91 H 16 103/67 98 02/25/18 22:33 80 16 02/25/18 21:00 97.7 F 78 16 106/56 93 L 02/25/18 17:40 98.0 F 91 H 16 99/59 99 02/25/18 13:44 97.7 F 75 16 118/57 100 02/25/18 09:06 97.9 F 94/55 02/25/18 09:00 97.5 F L 88 16 120/85 96 - General General Appearance: Alert, Oriented x3, Cooperative, No acute distress - Head Head exam: Normal inspection Head exam detail: Contusion (diffusely over left side of head) - Eye Eye exam: Normal appearance, PERRL, EOMI. negative: Conjunctival injection, Nystagmus Pupils: Normal accommodation - ENT ENT exam: Normal exam, Mucous membranes moist, Normal external ear exam, Normal orophraynx, TM's normal bilaterally Ear exam: Normal external inspection. negative: External canal tenderness Nasal Exam: Normal inspection. negative: Discharge, Sinus tenderness Mouth exam: Normal external inspection, Tongue normal Teeth exam: Normal inspection. negative: Dental caries Throat exam: Normal inspection. negative: Tonsillar erythema, Tonsillar exudate - Neck Neck exam: Normal inspection, Full ROM. negative: Lymphadenopathy, Meningismus , Tenderness - Respiratory Respiratory exam: Normal lung sounds bilaterally. negative: Respiratory distress - Cardiovascular Cardiovascular Exam: Regular rate, Normal rhythm, Normal heart sounds Peripheral Pulses: 2+: Radial (R), Radial (L), Dorsalis Pedis (R), Dorsalis Pedis (L) - GI/Abdominal GI/Abdominal exam: Soft, Normal bowel sounds. negative: Tenderness - Rectal Rectal exam: Deferred - exam: Deferred - Extremities Extremities exam: Normal inspection, Full ROM, Normal capillary refill. negative: Calf tenderness, Pedal edema, Tenderness - Back Back exam: Reports: Normal inspection, Full ROM. Denies: CVA tenderness (R), CVA tenderness (L), Muscle spasm, Rash noted, Tenderness - Neurological Neurological exam: Alert, CN II-XII intact, Normal gait, Oriented X3. negative : Abnormal gait, Altered, Motor sensory deficit - Psychiatric Psychiatric exam: Normal affect, Normal mood - Skin Skin exam: Dry, Intact, Normal color, Warm Hospitalization - Hospitalization Admission Diagnosis: Syncope; multiple contusions lef shoulder, head, left leg - Problem List/Discharge Diagnosis (1) Syncope Current Visit: Yes Status: Acute Base Code: R55 - SYNCOPE AND COLLAPSE Comment: 02/25/18 -EKG neg, trop neg, tele normal -Ortho static VS pending -Carotid US pending - TSH abnomral, holding synthroid at this time -Cardilogy Consult pending -Fall risk, up with assist 02/26/18 -asymptomatic this AM -Dr Rios conulted yesterday, ECHO ordered, completed and normal -Carotid US neg (less than 50% stenosis), incidently found 1 lymphnode -tele normal, trops normal -PT eval to be completed before d/c (2) Hypothyroid Current Visit: Yes Status: Acute Base Code: E03.9 - HYPOTHYROIDISM, UNSPECIFIED Comment: 02/25/18 -TSH 0.01, holding Synthroid, will give 150mcg at D/C until seen by PCP for chronic mgt -pt has similar issues 2009 with thryroid issues were first identified 02/26/18 -no Synthroid today, will send home with 1 week of 150mcg until seen by PCP friday for f/u (3) DVT prophylaxis Current Visit: Yes Status: Acute Base Code: [id number] - Comment: 02/26/18 -Lovenox 40mg SQ QD (4) Full code status Current Visit: Yes Status: Acute Base Code: Z78.9 - OTHER SPECIFIED HEALTH STATUS Comment: 02/26/18 -Full Code Status - Disposition Discharge home, needs follow up with PCP to have synthroid adjusted as current dosing was too high. Cardiac clearance completed by Dr Madala. STOP synthroid 225mcg and take only the 150mcg given today. Return to ER for continued syncope, chest pain, difficulty breathing or shortness of breath. - Hospitalization Course Disposition: Home, Self-Care Hospital Course: 62 yo female c/o syncope x2. First episode was 02/16/18 when at home. Reports she was feeling dizzy and had her nephew assist her to the bathroom. Pt remembers splashing cold water on her face and then woke up on the bathroom floor. Was able to get her self off the floor and ambulate out of the bathroom, family assisted her to the bed. Pt reports vomiting when she got to bed, then laying down but did not sleep. Family later reported to her that she was not understanding parts of conversation. Pt was not taken to ER nor was EMS notified , pt states everyone was intoxicated at the [facility] but she was not drinking, was there for the food. Second episode was 02/24/18 with dizziness at home. Pt ate breakfast but still had dizziness. Pt is a poor historian and became very anxious during this interaction. PMH Hep C with recent tx completion, Hypothyroidism, Anx/Dep, COPD. 02/24/18 Pt presented to ER for dizziness and episode of syncope. A&Ox3 upon arrival, denied CP, SOB, VINOD or ABD pain. BP 121/78, HR 86, RR18, 98% RA, 97.9F WBC 6.6, Hgb 13.4, Hct 39.6, Plt 198 D Dimer 0.32 Tot Bili 0.40, Direct Bili <0.2, AST 23, ALT 18, Alk Phos 103, Trop <0.010, Tot protein 7.3, Albumin 3.8, lactic Acid EKG NSR, no acute issues CT head and neck neg Left shoulder, left femur XR neg, CXR neg Admission for Syncope 02/25/18 Pt in no distress, a&ox3, neuro exam normal. Pt is poor historian but able to explain timeline well enough. US carotids ordered, repeat trops negative. Pt became anxious when speaking about recent family events of losing her mother and father has progressive CA. During this conversation, pt began to shake. Glucose 170 (postprandial), BP 120/85, HR 88, 97% RA. After stopping conversation about family stressors, pt calmed down and remained a&ox4. Labs reviewed and TSH ordered. TSH 0.01, T3T4 ordered. A1c 5.5 -Synthroid orders cancelled Awaiting Cardiology Consult and US results POC if card clearance, PT eval and d/c tomorrow F/U PCP to adjust synthroid [facility] Procedures: Imaging and X-Rays 02/24/18 18:19 CERVICAL SPINE WO CONTRAST [CT] Stat FEMUR, LEFT [RAD] Stat HEAD WO CONTRAST [CT] Stat RIBS, LEFT W/PA CHEST [RAD] Stat SHOULDER, LEFT [RAD] Stat 02/25/18 08:49 ARTERIAL DOPPLER CAROTID SAMANTHA [US] Stat Cardiology Procedures 02/24/18 18:19 EKG NOW 02/24/18 21:45 Composition [employer] .Continuous 02/25/18 13:03 Echo W/CF & Cardiac Doppler NOW Abnormal Labs: Abnormal Lab Results 02/24/18 02/24/18 02/25/18 Range/Units 18:40 18:40 05:35 MPV 11.0 H (7.4-10.4) fl Gran % (47-80) % Neutrophils % 37.0 L 25.0 L (47-80) % Lymphocytes % (16-45) % Monocytes % (0-9) % Lymphocytes 56.0 H 64.0 H (16-45) % Monocytes 11.0 H (0-9) % Chloride (98-107) mmol/L POC Glucose (70-110) mg/dL Random Glucose (74-109) mg/dL Albumin 3.8 L (4.0-5.0) g/dL TSH (0.270-4.20) uIU/mL Thyroxine (T4) (4.5-11.7) ug/dL 02/25/18 02/25/18 02/25/18 Range/Units 05:35 05:35 05:35 MPV (7.4-10.4) fl Gran % (47-80) % Neutrophils % (47-80) % Lymphocytes % (16-45) % Monocytes % (0-9) % Lymphocytes (16-45) % Monocytes (0-9) % Chloride 108 H (98-107) mmol/L POC Glucose (70-110) mg/dL Random Glucose (74-109) mg/dL Albumin 3.4 L (4.0-5.0) g/dL TSH 0.01 L (0.270-4.20) uIU/mL Thyroxine (T4) 18.00 H (4.5-11.7) ug/dL 02/25/18 02/26/18 02/26/18 Range/Units 10:05 06:20 06:20 MPV 10.5 H (7.4-10.4) fl Gran % 43.1 L (47-80) % Neutrophils % (47-80) % Lymphocytes % 45.6 H (16-45) % Monocytes % 9.8 H (0-9) % Lymphocytes (16-45) % Monocytes (0-9) % Chloride (98-107) mmol/L POC Glucose 170 H (70-110) mg/dL Random Glucose 115 H (74-109) mg/dL Albumin (4.0-5.0) g/dL TSH (0.270-4.20) uIU/mL Thyroxine (T4) (4.5-11.7) ug/dL Condition at Discharge: (2) Stable Discharge Medications - Discharge Medications Home Medications: Ambulatory Orders Acetaminophen [Tylenol 325Mg] 650 mg PO Q4H PRN tablet 02/26/18 [Last Taken Unknown] Albuterol Sulfate [Ventolin Hfa] 2 puff INH Q4H PRN inhaler 02/26/18 [Last Taken Unknown] Docusate Sodium [Colace] 100 mg PO BID PRN cap 02/26/18 [Last Taken Unknown] Levothyroxine Sodium [Synthroid] 150 mcg PO DAILY #14 tab 02/26/18 [Last Taken Unknown] Magnesium Hydroxide/Al Hydrox [Maalox] 30 ml PO Q4H PRN oral.susp 02/26/18 [ Last Taken Unknown] Discharge Plan - Discharge Instructions Activity at Discharge: Increase Activity as Tolerated Diet at Discharge: Regular Diet Additional Instructions: Follow up with your primary doctor, Dr. Webb, on Friday 03/03 at 10AM. Quality Measures - Quality Measures Quality Measures: Documentation of Current Medications in Medical Record, Screening for High Blood Pressure and F/U Documented - Current Medications Quality Measure: Measure #130: Documentation of Current Medications Documentation of Current Medications: <Current Medications Documented/Reviewed> [G8427] - Blood Pressure Screening Quality Measure: Screening for High Blood Pressure and Follow-Up Documented Does Patient Have Any of the Following: No Blood Pressure Classification: Normal BP Reading Systolic Measurement: 94 Diastolic Measurement: 55 Screening for High Blood Pressure: < Normal BP, F/U Not Required > [G8783] - Elder Abuse Suspicion Index EASI Reference Information: Meet TROY, Georgina C, Allyson Chu, Lin Mcgee.Development and validation of a tool to assist physicians identification of elder abuse: The Elder Abuse Suspicion Index (EASI ). Journal of Elder Abuse and Neglect, 2008; 20 (3): 276-300.
[2018-02-26] MEDS: DIPHENHYDRAMINE HCL 25 MG CAPSULE PO PRN (10:25)
[2018-02-26] MEDS: ENOXAPARIN 40 MG/0.4 ML SYR SQ SCH (10:26)
--- NOTE | 2018-02-26 10:34 | Rehab Evaluation ---
Patient Information - Patient Information Diagnosis: Syncope Ordered Treatment: PT Evaluate and Treat Status: Initial Evaluation Surgery: No History: Detail (Pt presented to ED 02/24/18 having experienced two recent episodes of syncope, first on 02/06/18 and again 02/24/18; admitted to [facility] for further medical workup. Experienced head, shoulder, and LE contusions in falls related to syncope.) Past Medical/Surgical Hx: PAST MEDICAL/SURGICAL HISTORY Past Surgical History x2 Thyroid removed PMH - Respiratory Hx Respiratory Disorders Yes Hx Chronic Obstructive Yes Pulmonary Disease (COPD) PMH - Cardiovascular Hx Cardiovascular Disorders Yes Hx Abnormal EKG Yes Comment: low heart rate PMH - Neuro Hx Neurological Disorders Yes Hx Headaches Yes PMH - GI Hx Gastrointestinal Disorders Yes Hx Hepatitis/Jaundice Yes: Hx of hep C PMH - Hx Genitourinary Disorders No Patient No PMH - Endocrine Hx Endocrine Disorders Yes Hx Diabetes No Hx Thyroid Disease Yes: removed 2009 PMH - Musculoskeletal Hx Musculoskeletal Disorders Yes Hx Arthritis Yes Hx Osteoporosis Yes PMH - Psych Hx Psychiatric Problems Yes Hx Anxiety Yes Hx Depression Yes PMH - Hematology/Oncology Hx Hematology/Oncology No Disorders Premorbid Status: Detail (Pt was independent with all ADLs, including driving, but has help from family for housekeeping. She states she used a single tip cane for ambulation due to problems with her left leg feeling like it might give out, but she recently gave it to her elderly father.) Social History: Detail (Pt currently lives in a second-level apartment with tub/ shower combination w/no grab bars. She is moving this week to a lower level apartment, with assistance from her grandchildren. She states she stays quite active with her grandchildren.) Precautions: [place], Fall - Time With Patient Total Time Spent With Patient (Min): 35 Treatment Procedures: Detail (PT Evaluation) Subjective Information - Subjective Information Per Patient (Pt reclined in bed upon arrival; awake, alert, cooperative for therapy. She notes diffuse pain in left leg that is chronic.) Objective Data - Pain Pain Present: Yes Pain Intensity: 5 Pain Scale Used: Numeric (1 - 10) - Mental Status Patient Orientation: Oriented x3 - Visual Perception Appears within normal limits for therapeutic activities - ROM Within normal limits - Strength/Tone Not within normal limits (L hip flexion, extension, L knee flexion, extension, and L ankle dorsiflexion grossly 4-/5 with minimal effort exerted. R hip abduction and extension are 4/5, R hip flexion and extension are 4+/5 as well as R knee flexion, extension, and R ankle dorsiflexion.) - Coordination Appears within normal limits for therapeutic activities - Bed Mobility Independent - Transfers Independent - Balance Balance Sitting: Good Balance Standing: Good (Completed Lucas Balance test, scored 54/56; challenged with tandem stance and single limb stance.) - Sensation Intact - Gait Detail (Ambulated w/o assistive device w/CGA/SBA from bedside to [facility] waiting area and back to bedside (about 390 feet). Denied fatigue, shortness of breath, increased pain.) Therapy Assessment - Therapy Assessment Detail (Pt exhibits safety with gait and balance for return to home environment. She was encouraged to obtain single tip cane to encourage mobility and facilitate safety. She verbalized good understanding. She has no further needs for physical therapy at this time.) Patient Education - Patient Education Teaching Topic: Equipment Use, Exercise/Activity, Precautions Response: Verbalize Understanding Teaching Method: Discussion Teaching Recipient: Patient Barriers To Learning: None Problem List - Problem List Physical Therapy Problem List: Detail (General L LE weakness of unknown origin.) Goals - Goals Physical Therapy Goals: None identified. Prognosis - Prognosis Good Plan - Plan Physical Therapy Plan: Pt exhibits safe gait and balance to return to home environment. She should obtain single tip cane to encourage mobility and facilitate safety. She is discharged from PT at this time.
== END 2018-02-26 11:10 | disposition home or self-care (01) ==
LOC: ER 17:41 → MEDSURG 21:36
PROVIDERS: ADMIT Internal Medicine; ATTEND Internal Medicine
DX: R55 Syncope and collapse (principal); E03.9 Hypothyroidism, unspecified; S40.022A Contusion of left upper arm, initial encounter; S70.12XA Contusion of left thigh, initial encounter; S00.93XA Contusion of unspecified part of head, initial encounter; W19.XXXA Unspecified fall, initial encounter; J44.9 Chronic obstructive pulmonary disease, unspecified; B19.20 Unspecified viral hepatitis C without hepatic coma; Z90.89 Acquired absence of other organs; Z87.891 Personal history of nicotine dependence
CPT/HCPCS: 83605; 80076; 81003; 80305; 85379; 85027; 73552; 71101; 73030; 72125; 70450; 93005; 93010; J1885; 36416; 80048; 80053; 82948; 83036; 84436; 84443; 84480; 84484; 85025; 90732; 93306; 93880; 94640; 96374; 99223; 99239; 99285; J1650

== ENCOUNTER 2018-04-18 04:14 | Emergency (ER) | payer MEDICARE, MEDICAID ==
[2018-04-18] MEDS ORDERED: KETOROLAC 30 MG/ML VIAL IVP ONE (04:31)
[2018-04-18] MEDS ORDERED: METOCLOPRAMIDE HCL 10 MG/2 ML VIAL IVP ONE (04:31)
[2018-04-18] MEDS ORDERED: DIPHENHYDRAMINE HCL 50 MG/ML VIAL IVP ONE (04:31)
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
[2018-04-18] MEDS ORDERED: 0.9 % SODIUM CHLORIDE 1000ML 1,000 ML IV SCH (04:45)
--- NOTE | 2018-04-20 12:15 | CT SCAN REPORT ---
EXAM: CT SCAN OF THE HEAD WITHOUT CONTRAST HISTORY: HEADACHES FOR THE PAST THREE WEEKS. PATIENT FELL AND HIT HEAD ON NEW 'S LYSSA. TECHNIQUE: Standard CT imaging of the head was performed in the axial plane without contrast. Comparison: 02/24/18. FINDINGS: The ventricles and subarachnoid spaces are normal. The brain parenchyma is unremarkable. There is no mass, mass effect, intracranial hemorrhage, visible acute infarct, or abnormal extraaxial fluid. The skull is intact. The orbits are normal. There is minor chronic mucosal thickening within the paranasal sinuses. There is trace fluid within the right mastoid air cells. IMPRESSION: 1. NO ACUTE INTRACRANIAL ABNORMALITY OR SKULL FRACTURE. 2. MINOR CHRONIC MUCOSAL THICKENING WITHIN THE PARANASAL SINUSES. 3. TRACE NONSPECIFIC FLUID WITHIN THE RIGHT MASTOID AIR CELLS. JOB NUMBER: [id number] [facility]
== END 2018-04-18 05:50 | disposition home or self-care (01) ==
LOC: ER 04:14
DX: R51 Headache (principal); H53.149 Visual discomfort, unspecified; J44.9 Chronic obstructive pulmonary disease, unspecified; Z87.891 Personal history of nicotine dependence
CPT/HCPCS: 99284 ×2; 96374; 96375; 70450; J1885; J1200; J2765; J7030

== ENCOUNTER 2019-01-19 21:12 | Emergency (ER) | payer MEDICARE, MEDICAID ==
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
[2019-01-19] MEDS: ASPIRIN 81 MG CHEWABLE TABLET PO ONE (21:22)
[2019-01-19 21:29] LABS: HEMATOCRIT 42.7 % (35.0-47.0); HEMOGLOBIN 14.2 gm/dl (11.6-16.0); MEAN CELL VOLUME 86.3 fl (81-97); MEAN CORPUSCULAR HEMOGLOBIN 28.7 pg (27-33); MEAN CORPUSCULAR HGB CONC 33.3 g/dl (32-36); MEAN PLATELET VOLUME 10.4 fl (7.4-10.4); PLATELET COUNT 197 K/uL (130-400); RED BLOOD COUNT 4.95 M/uL (3.80-5.40); RED CELL DISTRIBUTION WIDTH 13.8 % (11.5-14.5); WHITE BLOOD COUNT W/O DIFF 6.9 K/uL (4.2-12.2)
[2019-01-19 21:45] LABS: BLOOD UREA NITROGEN 9 mg/dL (8-23); CREATININE 0.7 mg/dL (0.5-0.9); EST GLOMERULAR FILTRATION RATE > 60 mL/min
[2019-01-19 21:46] LABS: TOTAL PROTEIN 7.7 g/dL (6.6-8.7)
[2019-01-19 21:48] LABS: GLUCOSE,RANDOM 140 mg/dL (74-109)
[2019-01-19 21:51] LABS: ALB/GLOB RATIO 1.4 (1.1-1.8); ALBUMIN 4.5 g/dL (4.0-5.0); ALKALINE PHOSPHATASE 132 U/L (35-104); ALT/SGPT 15 U/L (<33); AST/SGOT 24 U/L (10.0-35.0)
[2019-01-19] MEDS: NITROGLYCERIN 0.4MG SL TABLET #25 BTL SL ONE (22:06)
[2019-01-19] MEDS: 0.9 % SODIUM CHLORIDE 1000ML 500 ML IV SCH (22:10)
--- NOTE | 2019-01-19 22:31 | RADIOLOGY REPORT ---
EXAMINATION: Two View Chest Radiographs EXAM DATE: 01/19/2019 10:24 PM TECHNIQUE: Frontal and lateral views INDICATION: chest pain COMPARISON: None ENCOUNTER: Not applicable FINDINGS: The heart, mediastinum, and pulmonary vasculature are normal. No lung consolidation or pleural effu sions are present. IMPRESSION: No acute pulmonary disease process Dictated by: Alejandra Suero DO on 01/19/2019 10:28 PM. .
== END 2019-01-19 22:55 | disposition left against medical advice (07) ==
LOC: ER 21:12
DX: R07.89 Other chest pain (principal); R20.2 Paresthesia of skin; R51 Headache; R11.0 Nausea; J44.9 Chronic obstructive pulmonary disease, unspecified; Z87.891 Personal history of nicotine dependence; Z53.29 Procedure and treatment not carried out because of patient's decision for other reasons
CPT/HCPCS: 71046; 80053; 84484; 85027; 93005; 93010; 99285; J7030